=== PATIENT | female | born 1980 | race Caucasian/White ===

== ENCOUNTER 2017-12-10 21:52 | Emergency (ER) | payer SELFPAY ==
[~2017-12-10] VITALS: Ht 162.6 cm; Wt 104.8 kg
[2017-12-10 21:58] VITALS: Ht 162.6 cm; Wt 104.8 kg
[2017-12-10 23:05] VITALS: BP 160/95
== END 2017-12-10 23:05 | disposition home or self-care (01) ==
LOC: ED 21:52
DX: H00.015 Hordeolum externum left lower eyelid (principal); I10 Essential (primary) hypertension

== ENCOUNTER 2017-12-23 20:37 | Emergency (ER) | payer SELFPAY ==
[~2017-12-23] VITALS: Ht 165.1 cm; Wt 76.7 kg
[2017-12-23 20:45] VITALS: Ht 165.1 cm; Wt 76.7 kg
[2017-12-24 00:30] VITALS: BP 196/117
== END 2017-12-24 00:30 | disposition home or self-care (01) ==
LOC: ED 20:37
DX: L23.9 Allergic contact dermatitis, unspecified cause (principal); L03.114 Cellulitis of left upper limb; I10 Essential (primary) hypertension
CPT/HCPCS: Q0163